=== PATIENT | male | born 1975 | race Caucasian/White ===

== ENCOUNTER → 2020-06-14 | Outpatient (CLI) | payer OTHER | LOC: CATH 04-29 10:00 | DX: R42 Dizziness and giddiness (principal); R55 Syncope and collapse ==

== ENCOUNTER → 2020-08-11 | Outpatient (CLI) | payer OTHER | LOC: ECHO 12:44 | DX: R07.9 Chest pain, unspecified (principal); R55 Syncope and collapse; I08.3 Combined rheumatic disorders of mitral, aortic and tricuspid valves | CPT/HCPCS: ECHO; 93017; 93306 ==